=== PATIENT | male | born 1995 | race Caucasian/White ===

== ENCOUNTER 2018-07-03 12:44 | Emergency (ER) | payer SELFPAY ==
[~2018-07-03] VITALS: Ht 167.6 cm; Wt 69.9 kg
--- NOTE | 2018-07-03 12:44 | NUR ---
Pt placed in bed 5 by [facility]
[2018-07-03 12:48] VITALS: BP_SYST 128
--- NOTE | 2018-07-03 12:56 | NUR ---
Pt brought in by [employer] for syncopal episode at work, EMS state pt was working, lifting concrete, then passed out for maybe 30 seconds, hit head on floor. Pt woke up and thought was only "out for a second." Pt denies CP, SOB, n/v. Pt complains of pain to left shoulder and head 12/27. No other injuries/complaints per pt or noted.
--- NOTE | 2018-07-03 13:08 | NUR ---
ER at bedside examining patient.
[2018-07-03] MEDS ORDERED: NACL 0.9% 1,000 ML IV ONE (13:15)
[2018-07-03] MEDS ORDERED: KETOROLAC TROMETHAMINE 30 MG VIAL IVP ONE (13:15)
--- NOTE | 2018-07-03 13:16 | NUR ---
Pain medication and hydration was given to pt, tolerated well. Scanner was not working, unable to scan medications.
[2018-07-03 14:25] VITALS: BP_SYST 129
--- NOTE | 2018-07-03 14:25 | NUR ---
Patient given written and verbal discharge instructions and verbalizes understanding. ER MD discussed with patient the results and treatment provided. Patient in stable condition. ID arm band removed. IV catheter removed intact and dressing applied, no active bleeding. Rx of motrin given. Patient educated on pain management and to follow up with PMD. Pain Scale 2. Opportunity for questions provided and answered.
== END 2018-07-03 14:25 | disposition home or self-care (01) ==
LOC: SED 12:44
DX: R55 Syncope and collapse (principal); R03.0 Elevated blood-pressure reading, without diagnosis of hypertension
CPT/HCPCS: 96361; 96374; 99284; J1885; J7030